=== PATIENT | male | born 1945 | race Caucasian/White ===

== ENCOUNTER 2019-12-14 04:12 | Emergency (ER) | payer MEDICARE, SELFPAY ==
[2019-12-14 04:16] VITALS: BP 226/105; PULSE 75; RESP 18; TEMP 36.6; O2SAT 97
[2019-12-14 04:30] VITALS: BP 206/97; PULSE 70; RESP 16; TEMP 36.8; O2SAT 97; BMI 24.2
--- NOTE | 2019-12-14 05:07 | ECG_ITS ---
Test Reason : HTN Blood Pressure : / mmHG Vent. Rate : 064 BPM Atrial Rate : 064 BPM P-R Int : 142 ms QRS Dur : 074 ms QT Int : 428 ms P-R-T Axes : 035 054 055 degrees QTc Int : 441 ms Normal sinus rhythm Nonspecific ST and T wave abnormality Abnormal ECG When compared with ECG of 14-DEC-2016 16:28, Premature ventricular complexes are no longer Present T wave inversion less evident in Lateral leads Referred By: Sylvia Person Electronically Signed By:BRICE SAAB MD
--- NOTE | 2019-12-14 05:08 | ED.HA ---
HPI - Headache General Chief Complaint: Headache Stated Complaint: High Blood Pressure Time Seen by Provider: 12/14/19 05:07 Source: patient Mode of arrival: ambulatory Limitations: no limitations History of Present Illness HPI Narrative: This is a 74-year-old male with history of COPD, current smoker, history of anxiety and stress who presents with complaints of 2-3 days of intermittent headaches that he states, the back of his neck across the back of his head and are pounding in nature. He states he has had these before and they are often associated with ongoing stressors in his life which he states he is experiencing at present with trying to sell his house. These are not associated with hearing/visual/ speech abnormalities nor is it associated with unilateral weakness/ numbness / tingling. Otherwise, patient denies fevers, chills, chest pain /palpitations. Related Data Home Medications Medication Instructions Recorded Confirmed amlodipine 1 tab PO DAILY 12/14/19 12/14/19 aspirin 81 mg PO DAILY 12/14/19 12/14/19 lisinopril 1 tab PO DAILY 12/14/19 12/14/19 metoprolol succinate 1 tab PO DAILY 12/14/19 12/14/19 pravastatin tab PO 12/14/19 Allergies Allergy/AdvReac Type Severity Reaction Status Date / Time No Known Allergies Allergy Unverified 10/31/19 14:46 [No Known Allergies*] [facility] Past Medical History Medical History (Updated 12/14/19 @ 06:34 by Sylvia Person MD) HTN (hypertension) Kidney calculi PKD (polycystic kidney disease) Stenosis involving cardiac device Social History Social History Alcohol intake: never Smoking Status: Current every day smoker Use of substances other than those prescribed or required for medical reasons: No Advance Directives: No Advance Directives Information Provided: No Physical Exam Vital Signs: Vital Signs: Vital Signs Temp Pulse Resp BP Pulse Ox 12/14/19 06:17 63 176/84 H 12/14/19 04:30 98.2 F 70 16 206/97 H 97 12/14/19 04:16 97.8 F 75 18 226/105 H 97 Body Mass Index 24.2 Course Course Course Narrative: this is a 74-year-old male with history and clinical presentation most consistent with headache, tension type and doubt any acute intracranial pathology given the absence of neurological findings and absence of headache at present. On review of all investigations there are no acute findings to suggest an acute process and the observed CKD his likely natural progression when compared to laboratory results from 2017 as opposed to an acute change secondary to current hypertension. All results and findings were discussed with patient at bedside and he was encouraged to take [id number] Tylenol for headache control and to follow up with his primary care provider for improved blood pressure control. MDM - Headache Lab Data Result diagrams: 12/14/19 05:17 12/14/19 05:17 Labs: Lab Results 12/14/19 12/14/19 12/14/19 Range/Units 05:17 05:17 05:38 WBC 8.8 (4.8-10.8) X10*3/uL RBC 5.41 (4.60-5.80) X10*6/uL Hgb 16.8 (14.0-18.0) g/dl Hct 50.0 (42-52) % MCV 92.4 (80-98) fL MCH 31.1 (27.0-33.0) pg MCHC 33.6 (31.0-36.0) g/dl RDW 12.6 (11.0-16.0) % Plt Count 228 (160-400) X10*3/uL MPV 10.6 (9.4-12.4) fL Immature Gran % (Auto) 0.5 H (0.0-0.4) % Neut % (Auto) 67.2 (45-73) % Lymph % (Auto) 21.2 (20-40) % [place] % (Auto) 9.0 (2-11) % Eos % (Auto) 1.4 (0-4) % Baso % (Auto) 0.7 (0-2) % Lymph # (Auto) 1.9 (1.2-4.9) X10*3/uL [place] # (Auto) 0.8 (0.1-1.2) X10*3/uL Eos # (Auto) 0.1 (0.0-0.4) X10*3/uL Baso # (Auto) 0.1 (0.0-0.2) X10*3/uL Abs Immat Gran (auto) 0.04 H (0.00-0.03) X10*3/uL Absolute Neuts (auto) 5.9 (2.0-8.3) X10*3/uL Absolute Nucleated RBC 0.000 (0.0-0.012) X10*3/uL Nucleated RBC % (auto) 0.0 (0.0-0.2) /100WBC Sodium 140 (135-145) mmol/L Potassium 4.1 (3.3-5.1) mmol/l Chloride 103 (96-108) mmol/L Carbon Dioxide 26 (22-29) mmol/L Anion Gap 15 (12-20) BUN 31 H (9-16) mg/dL Creatinine 1.65 H (0.5-1.4) mg/dL Estim Creat Clear Calc 40.4 Estimated GFR 41 Random Glucose 107 (60-115) mg/dL Calcium 9.0 (8.4-10.2) mg/dL Total Bilirubin 0.8 (0.0-1.0) mg/dL AST 16 (5-37) U/L ALT 21 (0-40) U/L Alkaline Phosphatase 72 (39-117) U/L Total Protein 6.9 (6.5-8.0) g/dL Albumin 4.3 (3.5-5.0) g/dL Urine Color STRAW Urine Appearance CLEAR Urine pH 6.0 (5.0-8.0) Ur Specific [place] 1.025 (1.005-1.025) Urine Protein 2+ H (NEG-TRACE) MG/DL Urine Glucose (UA) NEG (NEG) MG/DL Urine Ketones NEG (NEG) MG/DL Urine Blood TRACE (NEG) Urine Nitrite NEG (NEG) Ur Leukocyte Esterase NEG (NEG) Urine RBC 0 (0) /HPF Urine WBC 0-2 (0-4) /HPF Ur Squamous Epith Cells NONE /LPF Urine Bacteria NONE /LPF ECG Data Attestation: I personally reviewed and interpreted this ECG as follows: Prior ECG tracings: available for review ( 12/14 no acute changes) Interpretation: NSR, HR - 64-no evidence of ischemia, MN/QRS/QTC are within normal limits. Discharge Plan Discharge Clinical Impression: Headache Qualifiers: Headache type: tension-type Headache chronicity pattern: unspecified pattern Intractability: not intractable Qualified Code(s): G44.209 - Tension-type headache, unspecified, not intractable Hypertension Qualifiers: Hypertension type: unspecified Qualified Code(s): I10 - Essential (primary) hypertension Patient Disposition: Home, Self-Care Instructions: DASH Eating Plan (ED), Hypertension (ED), Acute Headache (ED) Additional Instructions: 1. Follow-up with your primary care provider on Monday morning to discuss improved blood pressure control as well as headaches. 2. Recommend using [id number] Tylenol as directed on the outside packaging for headache control. Prescriptions: No Action pravastatin 40 mg tablet PO RF: 0 metoprolol succinate 50 mg tablet extended release 24 hr 1 tab PO DAILY RF: 0 lisinopril 20 mg tablet 1 tab PO DAILY RF: 0 amlodipine 2.5 mg tablet 1 tab PO DAILY RF: 0 aspirin 81 mg Tablet 81 mg PO DAILY RF: 0 Referrals: Everett Eid MD [Primary Care Provider] - 2 days ( Headache and blood pressure control)
[2019-12-14 05:45] LABS: Basophils Absolute Auto 0.1 X10*3/uL (0.0-0.2); Basophils Percent Auto 0.7 % (0-2); Eosinophils Absolute Auto 0.1 X10*3/uL (0.0-0.4); Eosinophils Percent Auto 1.4 % (0-4); Hemoglobin 16.8 g/dl (14.0-18.0); Imm Gran Abs Auto 0.04 X10*3/uL (0.00-0.03); Imm Gran Pct Auto 0.5 % (0.0-0.4); Lymphocytes Absolute Auto 1.9 X10*3/uL (1.2-4.9); Lymphocytes Percent Auto 21.2 % (20-40); MANUAL DIFF FLAG NO; Mean Corpuscular HGB Conc 33.6 g/dl (31.0-36.0); Mean Corpuscular Hemoglobin 31.1 pg (27.0-33.0); Mean Corpuscular Volume 92.4 fL (80-98); Mean Platelet Volume 10.6 fL (9.4-12.4); Monocytes Absolute Auto 0.8 X10*3/uL (0.1-1.2); Neutrophils Absolute Auto 5.9 X10*3/uL (2.0-8.3); Neutrophils Percent Auto 67.2 % (45-73); Platelet Count 228 X10*3/uL (160-400); Red Blood Count 5.41 X10*6/uL (4.60-5.80); Red Cell Distribution Width 12.6 % (11.0-16.0); White Blood Count 8.8 X10*3/uL (4.8-10.8)
[2019-12-14 05:45] LABS: Glucose Urine UA NEG (NEG); Leukocyte Esterase Urine NEG (NEG); Nitrite Urine NEG (NEG); Specific Gravity - Urine 1.025 (1.005-1.025); Urine Blood TRACE (NEG); Urine Ketones NEG (NEG); Urine Protein 2+ MG/DL (NEG-TRACE)
[2019-12-14 05:47] LABS: Appearance Urine CLEAR; Color Urine STRAW
[2019-12-14 05:51] LABS: RBC Urine 0 /HPF (0); WBC Urine 0-2 /HPF (0-4)
[2019-12-14 06:12] LABS: Alanine Aminotransferase 21 U/L (0-40); Albumin Level 4.3 g/dL (3.5-5.0); Alkaline Phosphatase 72 U/L (39-117); Anion Gap 15 (12-20); Aspartate Amino Transferase 16 U/L (5-37); Bilirubin Total 0.8 mg/dL (0.0-1.0); Blood Urea Nitrogen 31 mg/dL (9-16); Carbon Dioxide 26 mmol/L (22-29); Chloride 103 mmol/L (96-108); Creatinine Clr Calc Pharmacy 40.4; Estimated Glomerular Filt Rate 41; Glucose Random 107 mg/dL (60-115); Potassium 4.1 mmol/l (3.3-5.1); Sodium 140 mmol/L (135-145); Total Protein 6.9 g/dL (6.5-8.0)
[2019-12-14 06:17] VITALS: BP 176/84; PULSE 63
[2019-12-14] MEDS: hydrALAZINE HCl 20 MG/ML VIAL 5 MG IVPUSH (06:17)
[2019-12-14 06:42] VITALS: BP 166/82
== END 2019-12-14 06:47 | disposition home or self-care (01) ==
PROVIDERS: Emergency Provider Student in an Organized Health Care Education/Training Program; PCP Family Medicine
DX: G44.209 Tension-type headache, unspecified, not intractable (principal); I10 Essential (primary) hypertension; Z79.899 Other long term (current) drug therapy; F17.200 Nicotine dependence, unspecified, uncomplicated; Z71.6 Tobacco abuse counseling
CPT/HCPCS: 36415; 80053; 81001; 85025; 93005; 96374; 99284